=== PATIENT | female | born 1980 | race Caucasian/White ===

== ENCOUNTER 2017-12-24 09:59 | Emergency (ER) | payer OTHER ==
[2017-12-24 10:09] VITALS: BP 110/81
--- NOTE | 2017-12-24 11:02 | UC ---
Back Pain HPI - HPI Summary HPI Summary: 37 yo female presents with low back pain and vaginal bleeding. 1) Regarding her vaginal bleeding; she tells me that she has a copper IUD for the last 7 years. Over the last few months has noticed pain with intercourse and mild bleeding. Also is having heavier periods than normal for a prolonged period of time. Currently she has been having vaginal bleeding for the last 13 days. The first 10 days were spotting or very light, over the last 3 days have been significantly more voluminous. Has some moderate LLQ pain associated with this that began 3 days ago. She has an appt with her PCP within the next 2 weeks to discuss removal of her IUD. 2) Regarding her lower back pain; She tells me that she was packing and moving her household on 12/19 and 12/20. 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 She saw her chiropractor x3 since that time with no relief. Has also been taking ibuprofen and flexeril with no relief, although the flexeril does help her sleep at bedtime. She denies fever, chills, SOB, chest pain, n/v/d/c, dysuria, numbness, tingling , radiation of pain, or loss of bowel/bladder control. - History of Current Complaint Chief Complaint: UCBackPain Stated Complaint: BACK PAIN Time Seen by Provider: 12/24/17 10:27 Hx Last Menstrual Period: 12/11/17 Onset/Duration: Sudden Onset Severity Initially: Severe Severity Currently: Severe Pain Intensity: 10 Pain Scale Used: 0-10 Numeric - Allergies/Home Medications Allergies/Adverse Reactions: Allergies Allergy/AdvReac Type Severity Reaction Status Date / Time No Known Allergies Allergy Verified 10/23/14 20:51 PMH/Surg Hx/FS Hx/Imm Hx - Additional Past Medical History Additional PMH: None Previously Healthy: Yes - Surgical History Surgical History: Yes Surgery Procedure, Year, and Place: mcl + ACL right 2003 d&c 2000 tonsils wisdom teeth, patellar tendon repair - Family History Known Family History: Positive: None - Social History Occupation: Employed Full-time Lives: With Family Alcohol Use: Occasionally Substance Use Type: None Smoking Status (MU): Never Smoked Tobacco Type: Cigarettes Amount Used/How Often: few cigs per month Review of Systems Constitutional: Negative Skin: Negative Respiratory: Negative Cardiovascular: Negative Gastrointestinal: Abdominal Pain Genitourinary: Negative Motor: Negative Neurovascular: Negative Musculoskeletal: Other: - Left lower back/SI pain Neurological: Negative Psychological: Negative All Other Systems Reviewed And Are Negative: Yes Physical Exam - Summary Physical Exam Summary: GENERAL: NAD. WDWN. No pain distress. SKIN: No rashes, sores, lesions, or open wounds. NECK: Supple. FROM. Nontender. No lymphadenopathy. CHEST: CTAB. No r/r/w. No accessory muscle use. Breathing comfortably and in no distress. CV: RRR. Without m/r/g. Pulses intact. Brisk cap refill. ABDOMEN: Mild TTP LLQ, but only with significant pressure. No distention or guarding. No CVA tenderness. Bowel sounds present MSK: TTP over left SI. Pain with flexion and extension of spine. Strong positive SLR on left. Strength 5/5 B/L LEs including dorsiflexion and plantar flexion. FROM B/L LEs. No edema. NEURO: Alert. CN II-XII grossly intact. Sensations intact B/L LEs L3-S1. PSYCH: Age appropriate behavior. Triage Information Reviewed: Yes Vital Signs: Initial Vital Signs Temp 97 F 12/24/17 10:05 Pulse 67 12/24/17 10:05 Resp 16 12/24/17 10:05 BP 110/81 12/24/17 10:05 Pulse Ox 100 12/24/17 10:05 Laboratory Tests 12/24/17 12/24/17 11:13 11:16 POC Urine Color Yellow POC Urine Clarity Clear POC Urine pH 5.5 POC Ur Specif Honaker 1.015 POC Urine Protein Negative POC Ur Glucose (UA) Negative POC Urine Ketones Negative POC Urine Blood Negative POC Urine Nitrite Negative POC Urine Bilirubin Negative POC Urine Urobilinogen 0.2 POC U Leukocyte Esteras Negative POC Ur Test Negative Vital Signs Reviewed: Yes Back Pain Course/Dx - Course Course Of Treatment: XR lumbar: IMPRESSION: #. No significant change in multilevel degenerative spondylosis and facet joint. osteoarthritis compared with the November 01, 2014 MRI. #. Chronic bilateral L5 spondylolysis and grade 1 anterolisthesis. XR: hip: IMPRESSION: NO ACUTE OSSEOUS INJURY. IF SYMPTOMS PERSIST, RECOMMEND REPEAT IMAGING. US: IMPRESSION: 1. AN IUD IS NOTED CENTRALLY WITHIN THE ENDOMETRIAL CAVITY TOWARDS THE FUNDUS. 2. SMALL UTERINE FIBROIDS. Toradol 30mg IM and Zofran 4mg were given in the clinical course with moderate relief of pain and complete resolution of nausea. Her US did should small uterine fibroids, which could be the cause of her prolonged vaginal bleeding. I suspect her bleeding is unrelated to her recent back injury , therefore she will be dc'd with Tramadol, flexeril, and toradol for her likely sciatica. Advised to f/u with PCP or OBGYN regarding her vaginal bleeding. Pt agreeable to plan. - Differential Dx/Diagnosis Provider Diagnoses: Sciatica. LLQ pain. Abnormal vaginal bleeding. Uterine fibroids Discharge - Sign-Out/Discharge Documenting (check all that apply): Patient Departure - Discharge Plan Condition: Stable Disposition: HOME Prescriptions: Cyclobenzaprine TAB* [Flexeril 10 MG TAB*] 10 mg PO BID PRN #14 tab PRN Reason: Pain Ketorolac TAB * [Toradol TAB *] 10 mg PO TID #15 tab traMADol TAB* [Ultram*] 50 mg PO Q12H PRN #8 tab MDD 2 PRN Reason: Pain Patient Education Materials: Sciatica (ED), Lower Back Exercises (ED) Forms: *Work Release Referrals: Melania Wright NP [Primary Care Provider] - Additional Instructions: If you develop a fever, shortness of breath, chest pain, new or worsening symptoms - please call your PCP or go to the ED. - Billing Disposition and Condition Condition: STABLE Disposition: Home
[2017-12-24] MEDS ORDERED: Ketorolac INJ* 30 MG/ML 1 ML VIAL IM ONE (11:40)
[2017-12-24] MEDS ORDERED: Ondansetron ODT TAB* 4 MG PO ONE (11:40)
--- NOTE | 2017-12-24 12:35 | RAD ---
HISTORY: Left leg pain COMPARISONS: None VIEWS: 3, Frontal view of the pelvis with frontal and frog-leg views of the left hip FINDINGS: BONE DENSITY: Normal. BONES: There is no displaced fracture. JOINTS: There is no arthropathy. ALIGNMENT: There is no dislocation. SOFT TISSUES: Unremarkable. OTHER FINDINGS: An IUD is noted. There is a scoliotic curvature of the spine. Degenerative changes are noted at L5-S1. IMPRESSION: NO ACUTE OSSEOUS INJURY. IF SYMPTOMS PERSIST, RECOMMEND REPEAT IMAGING.
--- NOTE | 2017-12-24 12:56 | RAD ---
Indication: Back pain and spasms with radiation to the LEFT leg. Comparison: November 01, 2014 MRI. Technique: AP, lateral, and oblique views lumbar sacral spine. Report: 6 nonrib-bearing lumbar-type vertebral bodies. The most inferior nonrib-bearing lumbar type vertebral segment is estimated L5 for consistency in nomenclature with the November 01, 2014 MRI report. Small unfused anterior ring apophysis at the L3 vertebral body superior endplate without concern. Bilateral L5 spondylolysis with grade 1 anterolisthesis without significant change. Negative for fracture. Moderate L2-L3, severe L4-L5, and moderate L5-S1 disc space narrowing without significant change. L4-L5 and L5-S1 facet joint osteoarthritis. Unremarkable paraspinal soft tissue contours. IUD noted at the pelvis. IMPRESSION: #. No significant change in multilevel degenerative spondylosis and facet joint osteoarthritis compared with the November 01, 2014 MRI. #. Chronic bilateral L5 spondylolysis and grade 1 anterolisthesis.
--- NOTE | 2017-12-24 13:30 | RAD ---
HISTORY: Abnormal bleeding. LLQ pain COMPARISONS: None TECHNIQUE: Multiple transverse and longitudinal ultrasound images were obtained of the pelvis using grayscale, color Doppler, and spectral Doppler imaging using the endovaginal transducer. FINDINGS: UTERUS: The uterus measures 8.7 x 4.8 x 7.1 cm. There are small subserosal and myometrial fibroids measuring up to 1 cm in size. ENDOMETRIUM: The endometrial stripe is smooth. The endometrium measures 0.5 cm in thickness. An IUD is noted centrally within the endometrial cavity towards the fundus. CUL-DE-SAC: There is a small amount of simple fluid within the cul-de-sac. This may be physiologic in a reproductive age female. RIGHT OVARY: The right ovary measures 3.7 x 2.3 x 1.6 cm. Normal arterial and venous waveforms are identifiable within the ovary on spectral Doppler imaging. LEFT OVARY: The left ovary measures 3.7 x 2.7 x 1.7 cm. Normal arterial and venous waveforms are identifiable within the ovary on spectral Doppler imaging. BLADDER: The bladder is not well visualized. OTHER: None IMPRESSION: 1. AN IUD IS NOTED CENTRALLY WITHIN THE ENDOMETRIAL CAVITY TOWARDS THE FUNDUS. 2. SMALL UTERINE FIBROIDS.
== END 2017-12-24 13:56 | disposition home or self-care (01) ==
LOC: UCEAST 09:59
DX: M54.40 Lumbago with sciatica, unspecified side (principal); R10.32 Left lower quadrant pain; N93.9 Abnormal uterine and vaginal bleeding, unspecified; D25.2 Subserosal leiomyoma of uterus; Z97.5 Presence of (intrauterine) contraceptive device
CPT/HCPCS: 72110; 76830; 81003; 84702; 90472; 99212; A9270-GY; G0463; J1885

== ENCOUNTER 2019-05-30 13:58 | Emergency (ER) | payer OTHER ==
[2019-05-30 14:25] LABS: ABS Eosinophils 0.1 10^3/ul (0-0.6); ABS Monocytes 0.4 10^3/ul (0-0.8); ABS Neutrophils 3.2 10^3/ul (1.5-7.7); Hematocrit 32 % (35-47); Hemoglobin 10.9 g/dL (12.0-16.0); Lymphocyte % 35.3 %; Mean Corpuscular HGB Conc 34 g/dL (31-36); Mean Corpuscular Hemoglobin 29 pg (27-31); Mean Corpuscular Volume 85 fL (80-97); Mean Platelet Volume 7.8 fL (7.4-10.4); Nucleated Red Blood Cells % 0.1; Platelet Count 242 10^3/uL (150-450); Red Cell Distribution Width 16 % (10-15); White Blood Count 5.7 10^3/uL (3.5-10.8)
--- NOTE | 2019-05-30 14:41 | ED ---
GI/ HPI - HPI Summary HPI Summary: Pt is a 38 y/o F presenting to the ED with a chief complaint of issues. She states shes been bleeding heavily since 1800 yesterday, 05/29/2019. Shes been through a box of super plus tampons, numerous pads, underwear, pants, and sheets. She thinks she could be ovulating, and last bled on the and 9. She had intercourse on the , and notes that she has never had regular periods, as they have always been irregular, heavy, and full of clots, but this is much more severe. She reports nausea and fatigue. She denies fever, chills, vomiting, diarrhea, constipation, or dysuria. She is not on control. Medications reviewed. Allergies noted. - History of Current Complaint Chief Complaint: EDVaginalBleeding Time Seen by Provider: 05/30/19 14:05 Stated Complaint: GENERAL PER PT Hx Obtained From: Patient Hx Last Menstrual Period: 06/06/18 Onset/Duration: Started Hours Ago, Still Present Timing: Constant, Lasting Hours Severity: Moderate Current Severity: Severe Vaginal Bleeding Description: Dark Red, Clots Pain Intensity: 0 Associated Signs and Symptoms: Positive: Nausea. Negative: Vomiting, Constipation, Diarrhea, Dysuria Additional Signs & Symptoms: Positive: Vaginal Bleeding Aggravating Factor(s): Nothing Alleviating Factor(s): Nothing - Allergy/Home Medications Allergies/Adverse Reactions: Allergies Allergy/AdvReac Type Severity Reaction Status Date / Time No Known Allergies Allergy Verified 05/30/19 14:03 PMH/Surg Hx/FS Hx/Imm Hx Previously Healthy: Yes Endocrine/Hematology History: Denies: Hx Diabetes, Hx Thyroid Disease Cardiovascular History: Denies: Hx Hypertension, Hx Pacemaker/ICD Respiratory History: Denies: Hx Asthma, Hx Chronic Obstructive Pulmonary Disease (COPD) GI History: Denies: Hx Ulcer History: Denies: Hx Renal Disease Sensory History: Denies: Hx Hearing Aid Psychiatric History: Denies: Hx Panic Disorder - Surgical History Surgery Procedure, Year, and Place: mcl + ACL right 2003 d&c 2000 tonsils wisdom teeth, patellar tendon repair. RIGHT THUMB 1994 Infectious Disease History: No Infectious Disease History: Denies: Hx Clostridium Difficile, Hx Hepatitis, Hx Human Immunodeficiency Virus (HIV), Hx of Known/Suspected MRSA, Hx Shingles, Hx Tuberculosis, Hx Known/ Suspected VRE, Hx Known/Suspected VRSA, History Other Infectious Disease, Traveled Outside the [place] in Last 30 Days - Family History Known Family History: Negative: Blood Disorder - Social History Alcohol Use: Weekly Alcohol Amount: 2 DRINKS Hx Substance Use: No Substance Use Type: Reports: None Hx Tobacco Use: No Smoking Status (MU): Never Smoked Tobacco Type: Cigarettes Amount Used/How Often: few cigs per month Review of Systems Positive: Fatigue. Negative: Fever, Chills Positive: Nausea. Negative: Vomiting, Diarrhea, Other - constipation Negative: dysuria All Other Systems Reviewed And Are Negative: Yes Physical Exam - Summary Physical Exam Summary: Constitutional: Well-developed, Well-nourished, Alert. (-) Distressed Skin: Warm, Dry HENT: Normocephalic; Atraumatic Eyes: Conjunctiva normal Neck: Musculoskeletal ROM normal neck. (-) JVD, (-) Stridor, (-) Tracheal deviation Cardio: Rhythm regular, rate normal, Heart sounds normal; Intact distal pulses; Radial pulses are 2+ and symmetric. (-) Murmur Pulmonary/Chest wall: Effort normal. (-) Respiratory distress, (-) Wheezes, (-) Rales Abd: Soft, slight tenderness in the right suprapubic region, (-) Distension, (- ) Guarding, (-) Rebound Musculoskeletal: (-) Edema Lymph: (-) Cervical adenopathy Neuro: Alert, Oriented x3 Psych: Mood and affect Normal Triage Information Reviewed: Yes Vital Signs On Initial Exam: Initial Vitals Temp Pulse Resp BP Pulse Ox 98.5 F 80 16 136/86 97 05/30/19 14:00 05/30/19 14:00 05/30/19 14:00 05/30/19 14:00 05/30/19 14:00 Vital Signs Reviewed: Yes Procedures - Sedation Patient Received Moderate/Deep Sedation with Procedure: No Diagnostics - Vital Signs Vital Signs Temp Pulse Resp BP Pulse Ox 05/30/19 14:00 98.5 F 80 16 136/86 97 - Laboratory Lab Results: Lab Results 05/30/19 Range/Units 14:13 WBC 5.7 (3.5-10.8) 10^3/uL RBC 3.80 (3.70-4.87) 10^6 /uL Hgb 10.9 L (12.0-16.0) g/dL Hct 32 L (35-47) % MCV 85 (80-97) fL MCH 29 (27-31) pg MCHC 34 (31-36) g/dL RDW 16 H (10-15) % Plt Count 242 (150-450) 10^3/uL MPV 7.8 (7.4-10.4) fL Neut % (Auto) 55.2 % Lymph % (Auto) 35.3 % Pershing % (Auto) 6.7 % Eos % (Auto) 2.0 % Baso % (Auto) 0.8 % Absolute Neuts (auto) 3.2 (1.5-7.7) 10^3/ul Absolute Lymphs (auto) 2.0 (1.0-4.8) 10^3/ul Absolute Monos (auto) 0.4 (0-0.8) 10^3/ul Absolute Eos (auto) 0.1 (0-0.6) 10^3/ul Absolute Basos (auto) 0.0 (0-0.2) 10^3/ul Absolute Nucleated RBC 0.0 10^3/ul Nucleated RBC % 0.1 Result Diagrams: 05/30/19 14:13 05/30/19 14:13 Lab Statement: Any lab studies that have been ordered have been reviewed, and results considered in the medical decision making process. GIGU Course/Dx - Course Course Of Treatment: Patient is here with heavy vaginal bleeding since yesterday. It is typical for patient to have heavy vaginal bleeding during her periods but she is not expecting a menstrual period today. Patient had performed which showed no change in her hemoglobin. Patient had a pelvic exam which showed some clots in her vault but no active bleeding. Patient is not . Patient was started on TXa. Patient already has a [facility] appointment on the and was encouraged to set that up sooner. - Diagnoses Provider Diagnoses: Menorrhagia Discharge ED - Sign-Out/Discharge Documenting (check all that apply): Patient Departure - Discharge Plan Condition: Stable Disposition: HOME Prescriptions: Tranexamic Acid [Lysteda] 1,300 mg PO BID #20 tablet Patient Education Materials: Menorrhagia (ED) Referrals: Bennett Gonsalves MD [Primary Care Provider] - Additional Instructions: Follow up with your [facility] at your scheduled appointment. Call them on Saturday to see if you can follow-up sooner. Come back to the emergency department if you feel like you are going to faint, if you have severe abdominal pain, or if your bleeding worsens. Take your prescribed medications as instructed. - Billing Disposition and Condition Condition: STABLE Disposition: Home - Attestation Statements Document Initiated by Edgardo: Yes Documenting Scribe: Anusha Magdaleno Provider For Whom Edgardo is Documenting (Include Credential): Cortez Porras MD. Scribe Attestation: IAnusha, scribed for Cortez Porras MD. on 05/30/19 at 2051. Scribe Documentation Reviewed: Yes Provider Attestation: The documentation as recorded by the Anusha santa accurately reflects the service I personally performed and the decisions made by me, Cortez Porras MD. Status of Scribe Document: Viewed
[2019-05-30 14:46] LABS: HCG Pregnancy < 0.60 mIU/mL
[2019-05-30 14:53] LABS: ALT 15 U/L (7-52); AST 20 U/L (13-39); Albumin 4.5 g/dL (3.2-5.2); Alkaline Phosphatase 38 U/L (34-104); Anion Gap 7 mmol/L (2-11); BUN/Creatinine Ratio 25.3 (8-20); Blood Urea Nitrogen 21 mg/dL (6-24); CO2 Carbon Dioxide 27 mmol/L (22-32); Calcium 9.4 mg/dL (8.6-10.3); Chloride 103 mmol/L (101-111); EGFR African American 92.1 (>60); EGFR Non-African American 76.1 (>60); Globulin 2.3 g/dL (2-4); Glucose 90 mg/dL (70-100); Potassium 4.2 mmol/L (3.5-5.0); Sodium 137 mmol/L (135-145); Total Protein 6.8 g/dL (6.4-8.9)
--- OUTSIDE RECORDS SUMMARY | 2019-05-30 15:05 | XMS REPORT | Continuity of Care Document ---
:1980 External Reference #:[id number] Author Name ZBIGNIEW Doe Address [address] [place] [id number] Problems Active Problems Provider Date Lumbar radiculopathy Onset: 06/23/2018 Anxiety Onset: 08/01/2016 Inactive Problems Open wound Onset: 11/12/2018 Inactive: 11/12/2018 Social History Type Date Description Comments Sex Unknown Tobacco Use Start: Unknown Patient has never smoked Smoking Status Reviewed: 04/07/19 Patient has never smoked Allergies, Adverse Reactions, Alerts Description No Known Drug Allergies Medications Active Medications SIG Qnty Indications Ordering Provider Date Escitalopram Oxalate 1 tab by mouth 30tabs F43.23 ZBIGNIEW Deo 2018 5mg every day Tablets Cyclobenzaprine HCL 1-2 three 20tabs Unknown 03/18/2018 5mg times each day Tablets prn Oral Acyclovir 1 three times 90tabs Unknown 05/30/2017 800mg Tablets daily Oral History Medications Bactrim DS 1 twice daily Oral 10tabs Unknown 11/12/2018 - 11/17/2018 800-160mg Tablets Medications Administered in Office Medication SIG Qnty Indications Ordering Provider Date Injection Triamcinolone Acetonide Unknown 04/12/2017 Per 10 MG Injection Inject/Aspiration Of Ganglion Unknown 04/12/2017 Cyst(S) Any Location Injection Immunizations CPT Code Status Date Vaccine Lot # [id number] Given 02/20/2019 Flumist [id number] Given 05/13/2007 Tdap - Boostrix/Adacel Vital Signs Date Vital Result Comment 04/07/2019 3:28pm BP Systolic 100 mmHg BP Diastolic 64 mmHg Height 64.75 inches 5'4.75" Weight 117.00 lb Heart Rate 72 /min Body Temperature 98.5 F O2 % BldC Oximetry 99 % BMI (Body Mass Index) 19.6 kg/m2 11/12/2018 4:21pm BP Systolic 112 mmHg Weight 116.00 lb Heart Rate 80 /min Body Temperature 99.5 F O2 % BldC Oximetry 98 % Results Description No Information Available Procedures Description No Information Available Medical Devices Description No Information Available Encounters Type Date Location Provider Dx Diagnosis Office Visit 04/07/2019 3:15p [facility] Main ZBIGNIEW Doe F43.23 Adjustment disorder with mixed anxiety and depressed mood Assessments Date Code Description Provider 04/07/2019 F43.23 Adjustment disorder with mixed anxiety and ZBIGNIEW Doe depressed mood 02/20/2019 Z23 Encounter for immunization Bennett Gonsalves MD Plan of Treatment Future Appointment(s):04/14/2019 4:00 pm - ZBIGNIEW Doe at [facility] Main2018 - ZBIGNIEW DoeF43.23 Adjustment disorder with mixed anxiety and depressed moodNew Medication:Escitalopram Oxalate 5 mg - 1 tab by mouth every dayComments:discussed medication options for anxiety and depressiond/t being fearful of medications will start on low dose of lexapro and titrate as needed discussed possible adverse effect of medication If symptoms worsen [facility] medication [facility] continue daily exercise discussed communityresources for support suicide prevention, text hotline, mental health crisis team, ED followup in 2 weeks Functional Status Description No Information Available Mental Status Description No Information Available Referrals Description No Information Available
[2019-05-30 16:04] VITALS: BP 92/80
== END 2019-05-30 16:02 | disposition home or self-care (01) ==
LOC: ED 13:58
DX: N92.1 Excessive and frequent menstruation with irregular cycle (principal); Z32.02 Encounter for pregnancy test, result negative; R11.0 Nausea; R53.83 Other fatigue; Z72.0 Tobacco use
CPT/HCPCS: 36415; 80053; 84702; 85025; 99282

== ENCOUNTER 2024-03-05 13:11 | Inpatient (IN) ==
[2024-03-05 14:55] LABS: Urine Appearance Clear; Urine Bilirubin Negative (Negative); Urine Blood Negative (Negative); Urine Color Light-Yellow; Urine Glucose Negative (Negative); Urine Ketones Negative (Negative); Urine Nitrite Negative (Negative); Urine Protein Negative (Negative); Urine Specific Gravity 1.007 (1.002-1.030); Urine Urobilinogen Negative (Negative)
[2024-03-05 15:01] LABS: ABS Eosinophils 0.1 10^3/uL (0.0-0.5); ABS Lymphocytes 2.1 10^3/uL (1.0-4.8); ABS Monocytes 0.4 10^3/uL (0.0-0.9); Eosinophil % 1.3 %; Hematocrit 38.2 % (35-45); Lymphocyte % 38.3 %; Mean Corpuscular Hemoglobin 32.1 pg (27-33); Mean Corpuscular Volume 94.5 fL (80-97); Mean Platelet Volume 7.8 fL (7.5-11.2); Platelet Count 233 10^3/uL (150-450); Red Blood Count 4.04 10^6/uL (3.63-4.92); Red Cell Distribution Width 13.2 % (12-17); White Blood Count 5.6 10^3/uL (3.8-11.8)
[2024-03-05 15:23] LABS: Urine Benzodiazepine Screen None Detected (None Detect); Urine Cannabinoids Screen None Detected (None Detect); Urine Opiates Screen None Detected (None Detect)
[2024-03-05 15:46] LABS: ALT 17 U/L (7-52); AST 20 U/L (13-39); Acetaminophen < 15 mcg/mL; Albumin 4.3 g/dL (3.2-5.2); Albumin/Globulin Ratio 2.3 (1-3); Alcohol, S < 13 mg/dL (<13); Alkaline Phosphatase 37 U/L (35-149); Anion Gap 5 mmol/L (2-16); Blood Urea Nitrogen 18 mg/dL (6-24); CO2 Carbon Dioxide 29 mmol/L (22-32); Calcium 9.1 mg/dL (8.6-10.3); Chloride 107 mmol/L (101-111); Creatine Kinase 202 U/L (10-223); Creatinine, Serum 0.77 mg/dL (0.51-0.95); Globulin 1.9 g/dL (2-4); Glucose 99 mg/dL (70-100); Potassium 4.5 mmol/L (3.5-5.0); Salicylate < 2.50 mg/dL (<30); Sodium 141 mmol/L (135-145); Total Bilirubin 0.5 mg/dL (0.2-1.0); Total Protein 6.2 g/dL (6.4-8.9); eGFR CKD-EPI 96.9 (>60)
[2024-03-05 15:48] LABS: HCG Pregnancy < 0.60 mIU/mL
[2024-03-05 15:55] LABS: TSH Ultra Thyroid Stim Horm 1.27 mcIU/mL (0.34-5.60)
[2024-03-05] MEDS ORDERED: Al Hydrox/Mg Hydrox/Simet LIQ 30 ML UDC PO PRN (15:58)
[2024-03-06] MEDS: Multivitamins/Minerals TAB PO SCH (08:41)
[2024-03-06] MEDS: DULoxetine DR 60 mg CAP PO SCH (08:41)
[2024-03-06 09:09] LABS: HDL Cholesterol 66.3 mg/dL
[2024-03-09 10:33] VITALS: BP 112/73
== END 2024-03-09 11:40 | disposition home or self-care (01) | DRG 885 ==
LOC: ED 13:11 → EDHOLD 15:56 → BSU 16:19
PROVIDERS: ADMIT Student in an Organized Health Care Education/Training Program; ATTEND Psychiatry & Neurology Psychiatry